=== PATIENT | male | born 1950 | race Two or more races ===

== ENCOUNTER → 2024-09-20 | Outpatient (CLI) | payer OTHER, SELFPAY ==
[2024-09-20 08:32] LABS: Basophils # (Auto) 0.1 Thou/mm3 (0.0-0.2); Basophils % (Auto) 1 % (0-2.5); Eosinophils # (Auto) 0.3 Thou/mm3 (0.0-0.5); Eosinophils % (Auto) 6 % (0-10); Hemoglobin 13.1 g/dL (13.5-16.0); Immature Granulocytes % (Auto) 0 % (0-0); Immature Granulocytes Auto 0.01 Thou/mm3 (0.00-0.00); Lymphocytes % (Auto) 39 % (10-50); Mean Corpuscular HGB Conc 32.8 g/dl (31.0-37.0); Mean Corpuscular Hemoglobin 31.3 pg (25.0-35.0); Mean Corpuscular Volume 96 fL (80-100); Monocytes # (Auto) 0.5 Thou/mm3 (0.0-0.8); Monocytes % (Auto) 10 % (0-12); Neutrophils # (Auto) 2.2 Thou/mm3 (1.8-7.7); Neutrophils % (Auto) 44 % (37-80); Nucleated Red Blood Cell % 0 /100 WBC (0); Platelet Count 248 Thou/mm3 (140-440); RDW Standard Deviation 43.8 fL (35.1-43.9); Red Blood Count 4.19 Miln/mm3 (4.50-5.90); White Blood Count 5.1 Thou/mm3 (3.8-10.6)
[2024-09-20 10:42] LABS: Alanine Aminotransferase 22 U/L (10-49); Albumin, Serum 4.2 gm/dL (3.4-4.8); Alkaline Phosphatase 57 U/L (46-116); Anion Gap 7 (7-16); Aspartate Amino Transferase 29 U/L (0-34); BUN/Creatinine Ratio 16 Ratio (12-20); Bilirubin,Direct 0.1 mg/dL (0.0-0.3); Bilirubin,Total 0.6 mg/dL (0.3-1.2); Blood Urea Nitrogen 21 mg/dL (9-23); Calcium 9.3 mg/dL (8.3-10.6); Chloride 102 mMol/L (98-107); Creatinine (Component) 1.3 mg/dL (0.6-1.3); Glucose 99 mg/dL (74-106); Osmolality,Calculated 278 (275-295); Potassium 4.5 mMol/L (3.4-5.1); Sodium 138 mMol/L (136-145); eGFR 58 See Note
[2024-09-20 11:07] LABS: Cardiac Risk Estimate 3.6 RATIO (4.0-6.7); Cholesterol 222 mg/dL (132-200); HDL Cholesterol 62 mg/dL (40-60); LDL Cholesterol,Calculated 138 mg/dL (0-130); Triglycerides 112 mg/dL (30-150)
== END | disposition home or self-care (01) ==
LOC: COPL 06:40
PROVIDERS: PCP Family Medicine; Referring Provider Family Medicine; Visit Provider Family Medicine
DX: D50.9 Iron deficiency anemia, unspecified (principal); E78.5 Hyperlipidemia, unspecified
CPT/HCPCS: 36415; 80048; 80061; 80076; 85025

== ENCOUNTER → 2025-01-09 | Outpatient (CLI) | payer OTHER, SELFPAY ==
[2025-01-14 06:59] LABS: Fecal Globin Result NOT DETECTED (NOT DETECTED)
== END | disposition home or self-care (01) ==
LOC: SLDO 12:20
PROVIDERS: PCP Family Medicine; Referring Provider Family Medicine; Visit Provider Family Medicine
DX: Z12.11 Encounter for screening for malignant neoplasm of colon (principal); Z12.12 Encounter for screening for malignant neoplasm of rectum
CPT/HCPCS: 82274; G0328